=== PATIENT | male | born 1935 | race Caucasian/White ===

== ENCOUNTER 2016-10-03 12:58 | Emergency (ER) | payer MEDICARE, BC ==
[~2016-10-03] VITALS: Ht 182.9 cm; Wt 64.0 kg
[~2016-10-03 12:58] MED LIST: ACET500T3 PO; TRIF1TAB10
[2016-10-03 13:47] VITALS: BP 115/70; PULSE 74; RESP 16; TEMP 97.9; O2SAT 95
[2016-10-03 18:30] VITALS: BP 101/86; PULSE 76; RESP 16; O2SAT 93
[2016-10-03] MEDS ORDERED: SODIUM CHLORIDE 0.9% FLUSH 5 ML FLUSH IVF PRN (19:00)
[2016-10-03] MEDS ORDERED: HYDR-3516 PO (19:14)
[2016-10-03] MEDS ORDERED: SENN8.6C PO (19:16)
[2016-10-03 19:32] VITALS: RESP 16; O2SAT 96
--- NOTE | 2016-10-03 19:43 | PD ---
HPI Chief Complaint: GI Complaint Time Seen by Provider: 19:29 Travel History International Travel<30 days: No Contact w/Intl Traveler<30days: No Traveled to known affect area: No History of Present Illness HPI 80-year-old male presents to the emergency department for 10 days of constipation. 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 Patient has been under the care of Dr. Jorge Cordova. Patient had been on chemotherapy most recently Lonsurf that was discontinued May 2016 due to fatigue, weakness, failure to thrive, leukopenia and anemia. Patient was last seen by his oncologist 08/22/16. The oncologist not patient had not had successful management of his adenocarcinoma on systemic chemotherapy with Folfox , Folfiri with and without Avastin and with Avastin alone. At his 08/22/16 oncology visit it was determined that he would remain in observation status regarding treatment and then undergo restaging head and CT scan in early September with plan to follow-up in the office after repeat blood work 09/23/16. Patient reports that he has had some flatus over the past 10 days; patient has had poor oral intake over the past 6-7 days; no report of nausea or vomiting coffee- ground emesis hematemesis or bilious emesis. Patient also does not report hematochezia or melena. Patient does report passing a small amount of stool just prior to arrival to the emergency department. Patient has been using senna stool softener. Patient rates his overall discomfort as a constant 3-4/ 10 in intensity. 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 with focal resection 2 PEG tub placement and removal, COPD, hearing loss, osteoarthritis; nursing notes reviewed Cancer: Yes (COLON CANCER) Cardiovascular Problems: No Chemotherapy: Yes Diabetes: No Diminished Hearing: No Endocrine: No Gastrointestinal Disorders: Yes (COLON CA) Genitourinary: No Headaches: Yes Hepatitis: No Hiatal Hernia: No Immune Disorder: No Implanted Vascular Access Dvce: Yes Musculoskeletal: No Neurologic: No Psychiatric: No Reproductive: No Respiratory: No Immunizations Current: Yes Radiation Therapy: No Thyroid Disease: No Tetanus Vaccination: Unknown Past Surgical History Abdominal Surgery: Yes (RIH REPAIR, COLECTOMY) AICD: No Cardiac Surgery: No Ear Surgery: No Endocrine Surgery: No Eye Surgery: Yes (CATARACT SX RIGHT EYE) Genitourinary Surgery: No Gynecologic Surgery: No Joint Replacement: No Oral Surgery: No Pacemaker: No Thoracic Surgery: No Other Surgery: Yes (RT INGUINAL HERNIA; FEEDING TUBE) Social History Alcohol Use: Yes (OCC) Tobacco Use: No Substance Use: No Allergies-Medications (Allergen,Severity, Reaction): Coded Allergies: Sulfa (Verified Allergy, Intermediate, Rash, 10/03/16) Rash all over Reported Meds & Prescriptions Reported Meds & Active Scripts Active Reported Senna (Sennosides) 8.6 Mg Cap 2 Tab PO ONCE Hydrocodone-Acetaminophen 5-325 mg Tab 1 Tab PO Q6H PRN Acetaminophen 500 Mg Tab 500 Mg PO Q6H PRN Review of Systems Except as stated in HPI: all other systems reviewed are Neg General / Constitutional: No: Fever, Chills HENT: No: Congestion Cardiovascular: No: Chest Pain or Discomfort Respiratory: No: Shortness of Breath Gastrointestinal: Positive: Abdominal Pain, Constipation, Loss of Appetite, No : Nausea, Vomiting, Diarrhea, Hematochezia Genitourinary: No: Dysuria, Flank Pain Musculoskeletal: No: Myalgias, Arthralgias Skin: No Rash Neurologic: No: Weakness Psychiatric: No: Anxiety Hematologic/Lymphatic: No: Lymph Node Enlargement Physical Exam Narrative GENERAL: Well-developed well-nourished male in no acute distress no respiratory distress SKIN: Warm and dry. HEAD: Normocephalic. EYES: No scleral icterus. No injection or drainage. NECK: Supple, trachea midline. No JVD or lymphadenopathy. CARDIOVASCULAR: Regular rate and rhythm without murmurs, gallops, or rubs. RESPIRATORY: Breath sounds equal bilaterally. No accessory muscle use. GASTROINTESTINAL: Abdomen soft, non-tender, nondistended. Rectal exam: Normal sphincter tone large bolus of soft stool in the rectal vault brown without gross blood MUSCULOSKELETAL: No cyanosis, or edema. BACK: Nontender without obvious deformity. No CVA tenderness. Data Data Last Documented VS Vital Signs Date Time Temp Pulse Resp B/P Pulse Ox O2 Delivery O2 Flow Rate FiO2 10/04/16 00:25 78 16 98/72 95 Room Air 10/03/16 13:47 97.9 Orders Complete Blood Count With Diff (10/03/16 18:50) Comprehensive Metabolic Panel (10/03/16 18:50) Urinalysis - C+S If Indicated (10/03/16 18:50) Abdomen, Flat & Upright (10/03/16 ) Iv Access Insert/Monitor (10/03/16 18:50) Ecg Monitoring (10/03/16 18:50) Oximetry (10/03/16 18:50) Sodium Chloride 0.9% Flush (Ns Flush) (10/03/16 19:00) Ct Abd/Pel W Iv Contrast(Rout) (10/03/16 ) Sodium Chlorid 0.9% 500 Ml Inj (Ns 500 M (10/03/16 20:30) Bisacodyl Supp (Dulcolax Supp) (10/03/16 23:00) Acetaminophen (Tylenol) (10/03/16 23:00) Iohexol 350 Inj (Omnipaque 350 Inj) (10/03/16 23:02) Urine Culture (10/03/16 22:45) Heparin Central Flush (Heparin Central F (10/03/16 23:45) Heparin Central Flush (Heparin Central F (10/04/16 00:30) Labs Laboratory Tests Test 10/03/16 10/03/16 20:35 22:45 White Blood Count 12.0 TH/MM3 Red Blood Count 4.01 MIL/MM3 Hemoglobin 11.8 GM/DL Hematocrit 35.3 % Mean Corpuscular Volume 87.9 FL Mean Corpuscular Hemoglobin 29.4 PG Mean Corpuscular Hemoglobin 33.4 % Concent Red Cell Distribution Width 13.3 % Platelet Count 348 TH/MM3 Mean Platelet Volume 8.5 FL Neutrophils (%) (Auto) 78.1 % Lymphocytes (%) (Auto) 11.8 % Monocytes (%) (Auto) 9.1 % Eosinophils (%) (Auto) 0.8 % Basophils (%) (Auto) 0.2 % Neutrophils # (Auto) 9.4 TH/MM3 Lymphocytes # (Auto) 1.4 TH/MM3 Monocytes # (Auto) 1.1 TH/MM3 Eosinophils # (Auto) 0.1 TH/MM3 Basophils # (Auto) 0.0 TH/MM3 CBC Comment DIFF FINAL Differential Comment Sodium Level 140 MEQ/L Potassium Level 4.2 MEQ/L Chloride Level 105 MEQ/L Carbon Dioxide Level 25.2 MEQ/L Anion Gap 10 MEQ/L Blood Urea Nitrogen 23 MG/DL Creatinine 0.98 MG/DL Estimat Glomerular Filtration 74 ML/MIN Rate Random Glucose 93 MG/DL Calcium Level 8.6 MG/DL Total Bilirubin 0.5 MG/DL Aspartate Amino Transf 7 U/L (AST/SGOT) Alanine Aminotransferase 10 U/L (ALT/SGPT) Alkaline Phosphatase 92 U/L Total Protein 7.1 GM/DL Albumin 3.2 GM/DL Urine Color YELLOW Urine Turbidity CLEAR Urine pH 5.0 Urine Specific [place] GREATER THAN 1.035 Urine Protein NEG mg/dL Urine Glucose (UA) NEG mg/dL Urine Ketones 15 mg/dL Urine Occult Blood NEG Urine Nitrite NEG Urine Bilirubin NEG Urine Leukocyte Esterase NEG Urine WBC 3-5 /hpf Urine WBC Clumps RARE Urine Squamous Epithelial 6-8 /hpf Cells Urine Mucus OCC /lpf Urine Yeast with Hyphae RARE Urine Yeast (Budding) Microscopic Urinalysis Comment CULTURE INDICATED MDM Medical Decision Making Medical Screen Exam Complete: Yes Emergency Medical Condition: Yes Medical Record Reviewed: Yes Differential Diagnosis Constipation bowel obstruction intestinal mass Narrative Course 80-year-old male with history of colon cancer status post local resection and wide resection of recurrent cancer mass doing well but not tolerating chemotherapy which was discontinued May 2016 or recently in the past week and a half has developed constipation although ongoing flatus and today a small amount of stool passage without report of gross blood or melena. Patient with rectal vault full of soft stool that is Hemoccult positive. No gross blood. Plan is to check basic labs and obtain flat and upright abdomen x-ray will look for air fluid levels and dilated loops of bowel for blockage. We'll also evaluate for anemia secondary to GI blood loss, also for renal function and electrolyte status due to poor oral intake, we'll also assess urinalysis. HemaPrompt Point of Care Internal Pos. & Neg. Controls: Passed Fecal Specimen Occult Blood: Positive Diagnosis Primary Impression: Constipation Referrals: Primary Care Physician call for appointment Patient Instructions: General Instructions Additional Instructions: Continue current stool softener Increase fluid hydration May use [id number] magnesium citrate per package directions began with half bottle or loss and may use Dulcolax suppositories as well as consider MiraLAX per package directions Follow-up with your primary care/managing physician Return to the emergency department for any concerns or change in condition such as pain vomiting fever or any concerns Med/Other Pt SpecificInfo: No Change to Meds Disposition: 01 DISCHARGE HOME Condition: Stable Kimberly Deal MD Oct 03, 2016 19:43
--- NOTE | 2016-10-03 20:23 | RADHPO ---
EXAM DATE/TIME: 10/03/2016 19:55 [facility] COMPARISON: ABDOMEN FLAT & UPRIGHT, January 30, 2015, 8:18. INDICATIONS : No bowel movement for 10 days with history of colon cancer. MEDICAL HISTORY : Carcinoma, colon. SURGICAL HISTORY : colectomy ENCOUNTER: Initial ACUITY: 2 weeks PAIN SCORE: 7/10 LOCATION: Bilateral abdomen FINDINGS: AP erect and supine views of the abdomen were obtained and demonstrate gas and stool noted segments i n the colon. There are several loops of nondilated air containing small bowel. There are multiple sma ll air-fluid levels on the erect film with no evidence of free air. The bony structures are intact. T he lung bases are clear. There is a surgical clip in the left upper abdomen. CONCLUSION: Nonspecific bowel gas pattern which may represent a mild ileus or gastroenteritis. Yoni Sam MD on October 03, 2016 at 20:20 Board Certified Radiologist. This report was verified electronically.
[2016-10-03 20:30] VITALS: BP 111/75; PULSE 82; RESP 16; O2SAT 95
[2016-10-03] MEDS ORDERED: SODIUM CHLORID 0.9% 500 ML INJ 500 ML IV ONE (20:30)
[2016-10-03 21:10] LABS: AUTOMATED NEUTROPHIL # 9.4 TH/MM3 (1.8-7.7); BASOPHIL % 0.2 % (0.0-2.0); EOSINOPHIL # 0.1 TH/MM3 (0-0.4); EOSINOPHIL % 0.8 % (0.0-4.0); HEMATOCRIT 35.3 % (39.0-51.0); HEMO FLAGS DIFF FINAL; LYMPH % 11.8 % (9.0-44.0); LYMPHOCYTE # 1.4 TH/MM3 (1.0-4.8); MEAN CELL VOLUME 87.9 FL (80.0-100.0); MEAN CORPUSCULAR HEMOGLOBIN 29.4 PG (27.0-34.0); MEAN CORPUSCULAR HGB CONC 33.4 % (32.0-36.0); MONO % 9.1 % (0.0-8.0); NEUT % 78.1 % (16.0-70.0); PLATELET COUNT 348 TH/MM3 (150-450); RED BLOOD COUNT 4.01 MIL/MM3 (4.50-5.90); RED CELL DISTRIBUTION WIDTH 13.3 % (11.6-17.2)
[2016-10-03 21:15] LABS: CHLORIDE 105 MEQ/L (98-107); POTASSIUM 4.2 MEQ/L (3.5-5.1); SODIUM (NA) 140 MEQ/L (136-145)
[2016-10-03 21:19] LABS: ANION GAP 10 MEQ/L (5-15); BICARBONATE 25.2 MEQ/L (21.0-32.0); BLOOD UREA NITROGEN 23 MG/DL (7-18)
[2016-10-03 21:22] LABS: ALT (GPT) 10 U/L (12-78); AST (GOT) 7 U/L (15-37); GLOMERULAR FILTRATION RATE 74 ML/MIN (>89)
[2016-10-03 21:24] LABS: TOTAL BILIRUBIN ADULT 0.5 MG/DL (0.2-1.0)
[2016-10-03 21:25] LABS: ALKALINE PHOSPHATASE 92 U/L (45-117)
[2016-10-03 21:50] VITALS: BP 124/79; PULSE 85; RESP 16; O2SAT 95
--- NOTE | 2016-10-03 22:37 | RADHPO ---
EXAM DATE/TIME: 10/03/2016 22:00 [facility] COMPARISON: CT ABDOMEN & PELVIS W CONTRAST, November 09, 2015, 10:46. INDICATIONS : Abdomen pain, colon cancer. IV CONTRAST: 91 cc Omnipaque 350 (iohexol) IV ORAL CONTRAST: No oral contrast ingested. RADIATION DOSE: 5.97 CTDIvol (mGy) MEDICAL HISTORY : Carcinoma, colon. SURGICAL HISTORY : Colostomy. ENCOUNTER: Initial ACUITY: 1 day PAIN SCALE: 2/10 LOCATION: abdomen TECHNIQUE: Volumetric scanning of the abdomen and pelvis was performed. Using automated exposure control and ad justment of the mA and/or kV according to patient size, radiation dose was kept as low as reasonably achievable to obtain optimal diagnostic quality images. FINDINGS: LOWER LUNGS: The visualized lower lungs are clear. LIVER: Multiple low-density lesions are seen throughout the liver. Some of these are new compared to the reyes or study. The new lesions I suspect are liver metastatic disease. No dilated biliary ducts. There is a small amount of fluid adjacent to the liver. SPLEEN: Normal size without lesion. PANCREAS: Within normal limits. KIDNEYS: Normal in size and shape. There is no mass, stone or hydronephrosis. ADRENAL GLANDS: Within normal limits. VASCULAR: There is no aortic aneurysm. BOWEL/MESENTERY: Evidence of previous abdominal surgery. There is a moderate amount of stool throughout the colon. The re appears to be a large bolus of stool in the rectum. No inflammatory changes are seen. No definite or significant free fluid or loculated fluid collections are demonstrated. No definite obstruction. ABDOMINAL WALL: Within normal limits. RETROPERITONEUM: There is no lymphadenopathy. BLADDER: There are multiple stones in the bladder. REPRODUCTIVE: The prostate measures 5 cm. INGUINAL: There is no lymphadenopathy or hernia. MUSCULOSKELETAL: Within normal limits for patient age. CONCLUSION: 1. Multiple low-density lesions in the liver. Suspect liver metastatic disease. 2. Multiple stones in the urinary bladder. 3. Prostate measures 5 cm. 4. Moderate stool throughout the colon with a large bolus of stool in the rectum. Xavier Howe MD on October 03, 2016 at 22:29 Board Certified Radiologist. This report was verified electronically.
[2016-10-03 22:59] LABS: BLOOD, URINE NEG (NEG); GLUCOSE,URINE NEG (NEG); KETONE, URINE 15 mg/dL (NEG); NITRITE,URINE NEG (NEG)
[2016-10-03] MEDS ORDERED: BISACODYL 10 MG SUPP RECTAL ONE (23:00)
[2016-10-03] MEDS ORDERED: ACETAMINOPHEN 325 MG TAB PO ONE (23:00)
[2016-10-03] MEDS ORDERED: IOHEXOL 350 MG/ML 10 ML VIAL (for RAD DIAG) IV ONE (23:02)
[2016-10-03 23:06] LABS: URINE COLOR YELLOW (YELLW/STRAW)
[2016-10-03 23:07] LABS: MUCUS URINE OCC /lpf (OCC)
[2016-10-03 23:11] LABS: COMMENT (UR) CULTURE INDICATED; CULTURE IF INDICATED CULTURE INDICATED
[2016-10-04 00:25] VITALS: BP 98/72; PULSE 78; RESP 16; O2SAT 95
== END 2016-10-04 00:33 | disposition home or self-care (01) ==
LOC: PHED 12:58
DX: K59.00 Constipation, unspecified (principal); Z85.038 Personal history of other malignant neoplasm of large intestine; R82.90 Unspecified abnormal findings in urine
CPT/HCPCS: 74020; 74177; 80053; 81001; 85025; 87086; 96360; 99284; J1642; J7040; Q9967